=== PATIENT | male | born 2005 ===

== ENCOUNTER 2023-11-15 21:18 | Emergency (ER) | payer SELFPAY ==
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
--- NOTE | 2023-11-15 21:59 | PC.NURSE ---
PT BROUGHT IN BY EMS FOR DUI IN INTERSTATE PT REFUSED [place] AND REFUSED TO ANSWER ANY QUESTIONS PT TAKEN OUT IN HAND CUFFS BY STATE POLICE
== END 2023-11-15 22:00 ==
LOC: CHSED 22:00
PROVIDERS: Emergency Provider Student in an Organized Health Care Education/Training Program
DX: F41.9 Anxiety disorder, unspecified (principal)
CPT/HCPCS: 99281